=== PATIENT | male | born 1965 | race Caucasian/White ===

== ENCOUNTER 2016-10-06 09:48 | Emergency (ER) | payer OTHER ==
[~2016-10-06] VITALS: Ht 182.9 cm; Wt 92.8 kg
[~2016-10-06 09:48] MED LIST: BACLOFEN10 MG PO; MEDROL DOSEPAK4 MG PO; PERCOCET 5/31 TABLET PO
[2016-10-06 11:38] LABS: EOSINOPHIL (%) 0 % (0-5); HEMATOCRIT 45.8 % (38.0-50.0); IMMATURE GRANULOCYTE (%) 0.2 % (0.0-0.7); IMMATURE GRANULOCYTE COUNT 0.1 K/uL; LYMPHOCYTE COUNT 0.8 K/uL (1.0-2.8); MCHC 33.6 G/DL (30.0-36.0); MEAN PLAT.VOLUME 9.5 uM^3 (9.0-12.4); MONOCYTE (%) 9.3 % (3-12); MONOCYTE COUNT 0.5 K/uL (0-0.8); NEUTROPHIL (%) 75.6 % (45-76); PLATELET COUNT 142 K/uL (156-360); RBC DIS.WIDTH-CV 12.3 % (11.8-14.6); RBC DIS.WIDTH-SD 41.9 % (39-53); RED BLOOD COUNT 4.82 M/uL (4.00-5.50); WHITE BLOOD COUNT 5.3 K/uL (4.1-10.2)
[2016-10-06 11:46] LABS: CHLORIDE 104 mEq/L (99-109); POTASSIUM 3.7 mEq/L (3.7-5.4); SODIUM 139 mEq/L (136-147)
[2016-10-06 11:47] LABS: GLUCOSE 102 mg/dL (70-99)
[2016-10-06 11:49] LABS: ANION GAP 9 MEQ/L (2-14)
[2016-10-06 11:51] LABS: GFR ESTIMATE (CALCULATED) > 59 mL/min/
[2016-10-06 11:52] LABS: UREA NITROGEN (BUN) 12 mg/dL (9-23)
[2016-10-06] MEDS ORDERED: ANTIVERT25 MG PO (13:47)
[2016-10-06 14:03] VITALS: BP 156/94
== END 2016-10-06 14:05 | disposition home or self-care (01) ==
LOC: EME 09:48
PROVIDERS: Emergency Medicine
DX: R42 Dizziness and giddiness (principal); J06.9 Acute upper respiratory infection, unspecified
CPT/HCPCS: 70450; 71020; 80048; 85025; 93005; 99281; 99285; J7030